=== PATIENT | male | born 1950 | race Caucasian/White ===

== ENCOUNTER 2025-03-05 14:19 | Emergency (ER) | payer MEDICARE, BC ==
[~2025-03-05] VITALS: Ht 180.3 cm; Wt 81.6 kg
[2025-03-05] MEDS ORDERED: LIDOCAINE 2% 20 ML MDV ONE (14:53)
[2025-03-05] MEDS ORDERED: TDAP [DIPH/PERTUSSIS/TET] 0.5 ML VIAL IM ONE (14:53)
[2025-03-05] MEDS: TDAP [DIPH/PERTUSSIS/TET] 0.5 ML VIAL IM ONE (14:59)
[2025-03-05] MEDS: LIDOCAINE /MPF 1% VIAL 5 ML VIAL IJ ONE (15:01)
[2025-03-05] MEDS ORDERED: MUPI22OI7 TP (16:00)
[2025-03-05] MEDS ORDERED: CELLULOSE,OXIDIZED 1 PKT EACH MC ONE (17:00)
[2025-03-05] MEDS ORDERED: TRANEXAMIC ACID 1,000 MG/10 ML VIAL ONE (17:00)
[2025-03-05] MEDS: TRANEXAMIC ACID 1,000 MG/10 ML VIAL TOP ONE (17:05)
[2025-03-05 17:17] VITALS: BP 119/76; TEMP 98.2; O2SAT 98
== END 2025-03-05 17:17 | disposition home or self-care (01) ==
LOC: ER 14:28
DX: S91.112A Laceration without foreign body of left great toe without damage to nail, initial encounter (principal); E78.00 Pure hypercholesterolemia, unspecified; I51.9 Heart disease, unspecified; Z79.82 Long term (current) use of aspirin; Z85.528 Personal history of other malignant neoplasm of kidney; Z85.828 Personal history of other malignant neoplasm of skin; Z95.1 Presence of aortocoronary bypass graft; W18.39XA Other fall on same level, initial encounter; Y93.89 Activity, other specified; Y92.89 Other specified places as the place of occurrence of the external cause; Y99.9 Unspecified external cause status
CPT/HCPCS: 12002; 73660; 90471; 90715; 99283; A6403; J3490